=== PATIENT | female | born 1965 | race Two or more races ===

== ENCOUNTER 2017-03-16 10:03 | Emergency (ER) | payer SELFPAY ==
[2017-03-16 10:15] VITALS: BP 100/66; PULSE 79; TEMP 98.1; BMI 21.9
--- NOTE | 2017-03-16 10:42 | PDOC ---
History of Present Illness - General Chief Complaint: Pain Stated Complaint: RT KNEE PAIN Time Seen by Provider: 03/16/17 10:40 History Source: Patient Exam Limitations: No Limitations - History of Present Illness Initial Comments: 03/16/17 10:41 CHIEF COMPLAINT: Right knee pain HISTORY OF PRESENT ILLNESS: Right anterior knee pain for over 1 week. Denies trauma, no swelling. Able to ambulate without a limp. [employer] [id number] REVIEW OF SYSTEMS: GENERAL: Afebrile, A&O x3 RESPIRATORY: No cough, wheezing, or hemoptysis. CARDIAC: No CP or SOB MUSCULOSKELETAL: Pain to right anterior and posterior knee SKIN : No erythema, no edema, no bruising, no deformity. NEUROLOGICAL: Denies any numbness or tingling. PHYSICAL EXAM: GENERAL: The patient is awake, alert, and fully oriented, in no acute distress. HEAD: Normal with no signs of trauma. RESPIRATORY: Lungs clear bilaterally no rhonchi, rales, or wheezes CARDIAC: S1-S2 audible, no murmur rub or gallop EXTREMITIES: Good range of motion to right knee related to pain, no fluid appreciated, no bulge sign. No pain to superior or inferior patella. Negative drop test. Negative posterior leg test. No joint laxity noted, no ecchymosis, no deformity, no abrasions ,no edema. +3 popliteal pulse. Negative Homans sign. No calf pain or tenderness, no erythema or edema. MUSCULOSKELETAL: No spinal point tenderness. SKIN: Warm, Dry, normal turgor, no erythema, no edema no bruising. Past History - Past Medical History Allergies/Adverse Reactions: Allergies Allergy/AdvReac Type Severity Reaction Status Date / Time No Known Allergies Allergy Verified 03/16/17 10:14 Home Medications: Ambulatory Orders NK [No Known Home Medication] 03/16/17 Other medical history: DENIES - Surgical History Cholecystectomy: Yes - Psycho/Social/Smoking Cessation Hx Suicidal Ideation: No Smoking History: Current some day smoker Number of Cigarettes Smoked Daily: 1 Information on smoking cessation initiated: No Hx Alcohol Use: No Drug/Substance Use Hx: No *Physical Exam - Vital Signs Last Vital Signs Temp Pulse Resp BP Pulse Ox 98.1 F 79 18 100/66 100 03/16/17 10:11 03/16/17 10:11 03/16/17 10:11 03/16/17 10:11 03/16/17 10:11 Medical Decision Making - Medical Decision Making 03/16/17 12:39 A/P : Right knee pain, anterior denies calf pain. Denies injury. Pain greater then 1 week. Sent for xray, r/o effusion Xray with lateral tilt of the patellar, ? patellar maltracking, Will need to follow up with ortho for further assessment. It is ambulating without a limp. There is no erythema edema or deformity. I discussed the physical exam findings, ancillary test results and final diagnoses with the patient. I answered all of the patient's questions. The patient was satisfied with the care received and felt comfortable with the discharge plan and treatment plan. The patient will call to arrange follow-up and will return to the Emergency Department with any new, persistent or worsening symptoms. 03/16/17 13:42 *DC/Admit/Observation/Transfer Diagnosis at time of Disposition: Patellar maltracking Qualifiers: Laterality: right Qualified Code(s): M22.8X1 - Other disorders of patella, right knee - Discharge Dispostion Disposition: HOME Condition at time of disposition: Good Admit: No - Referrals Referrals: Candido Dudley MD [Staff Physician] - - Patient Instructions Additional Instructions: Recommend follow up with orthopedics.
== END 2017-03-16 12:51 | disposition home or self-care (01) ==
LOC: JERFT 10:03
DX: M22.8X1 Other disorders of patella, right knee (principal)
CPT/HCPCS: 73562-TC-RT; 99281-25